=== PATIENT | female | born 1990 | race Caucasian/White ===

== ENCOUNTER 2016-12-03 12:47 | Emergency (ER) | payer BC ==
[2016-12-03] MEDS ORDERED: SODIUM CHLORIDE 0.9% 1,000 ML IV STA (13:23)
[2016-12-03] MEDS ORDERED: diphenhydrAMINE 50 MG/ML 1 ML VIAL IVP STA (13:23)
[2016-12-03] MEDS ORDERED: METOCLOPRAMIDE 5 MG/ML 2 ML VIAL IVP STA (13:23)
--- NOTE | 2016-12-03 13:26 | ED ---
General Adult HPI - General Chief complaint: Dizziness Stated complaint: Dizzy Spells/Headache Time Seen by Provider: 12/03/16 13:08 Source: patient, RN notes reviewed Mode of arrival: ambulatory Limitations: no limitations - History of Present Illness Initial comments: Patient 26-year-old female who presents emergency room today with a chief complaint of headache over the last 3 days with feeling dizziness that started yesterday. States that when she tried to eat something yesterday she felt nauseous. Denies any vomiting. She is eating due to the nausea over the last 24 hours. States that she went to urgent care was advised complete emergency room for further evaluation. She states headache feels like a migraine. She doesn't sensitivity to light. She states is located on the sides of her head. States still feels a little lightheaded and unsteady on her feet at times. States nauseous at times today. Denies any other complaints or symptoms currently. Patient denies any recent fever, chills, shortness of breath, chest pain, back pain, abdominal pain, nausea or vomiting, numbness or tingling, dysuria or hematuria, constipation or diarrhea, headaches or visual changes, or any other complaints. - Related Data Home Medications Medication Instructions Recorded Confirmed Multivitamins, Thera [Multivitamin 1 tab PO DAILY 12/03/16 12/03/16 (formulary)] Previous Rx's Medication Instructions Recorded Ibuprofen [Motrin] 600 mg PO Q6HR PRN #20 day 12/03/16 Metoclopramide HCl [Reglan] 10 mg PO Q6HR PRN #5 day 12/03/16 Allergies Allergy/AdvReac Type Severity Reaction Status Date / Time doxycycline Allergy Chest Pain Verified 12/03/16 14:02 Review of Systems ROS Statement: Those systems with pertinent positive or pertinent negative responses have been documented in the HPI. ROS Other: All systems not noted in ROS Statement are negative. Past Medical History Past Medical History: No Reported History History of Any Multi-Drug Resistant Organisms: None Reported Additional Past Surgical History / Comment(s): abdominal surgery (tumor removed) Past Psychological History: No Psychological Hx Reported Smoking Status: Never smoker Past Alcohol Use History: Occasional Past Drug Use History: None Reported General Exam - General Exam Comments Initial Comments: General: The patient is awake and alert, in no distress, and does not appear acutely ill. Eye: Pupils are equal, round and reactive to light, extra-ocular movements are intact. No nystagmus. There is normal conjunctiva bilaterally. No signs of icterus. Ears, nose, mouth and throat: There are moist mucous membranes and no oral lesions. Neck: The neck is supple, there is no tenderness or JVD. No meningismal signs. Cardiovascular: There is a regular rate and rhythm. No murmur, rub or gallop is appreciated. Respiratory: Lungs are clear to auscultation, respirations are non-labored, breath sounds are equal. No wheezes, stridor, rales, or rhonchi. Gastrointestinal: Soft, non-distended, non-tender abdomen without masses or organomegaly noted. There is no rebound or guarding present. No CVA tenderness. Bowel sounds are unremarkable. Normal finger nose testing. Normal rapid alternating movements. Strength 5/5 bilaterally both upper and lower extremity's. Musculoskeletal: Normal ROM, no tenderness. Strength 5/5. Sensation intact. Pulses equal bilaterally 2+. Neurological: A&O x 3. CN II-XII intact, There are no obvious motor or sensory deficits. Coordination appears grossly intact. Speech is normal. Skin: Skin is warm and dry and no rashes or lesions are noted. Psychiatric: Cooperative, appropriate mood & affect, normal judgment. Limitations: no limitations Course Vital Signs 12/03/16 12/03/16 12:53 14:27 Temperature 97.8 F 98.7 F Pulse Rate 80 65 Respiratory 17 18 Rate Blood Pressure 103/64 122/69 O2 Sat by Pulse 99 99 Oximetry EKG Findings - EKG Comments: EKG Findings:: EKG performed at 1408: A 12-lead EKG was performed and interpreted by me as showing the following: Rate is 62, and rhythm is normal sinus. There are normal QRS complexes and normal R-wave progression. ST segments have no elevation or depression, and VA segments appear normal. Medical Decision Making - Medical Decision Making Reexamined at this time shows no signs of distress. She does admit that her headache is improved here the emergency room after medications given. Patient will be discharged with Reglan and ibuprofen continue her symptoms. Advised to return to emergency room if any symptoms increase or worsen or fail concerns. - Lab Data Result diagrams: 12/03/16 14:03 12/03/16 14:03 Lab Results 12/03/16 12/03/16 12/03/16 Range/Units 14:03 14:03 14:14 WBC 6.0 (3.8-10.6) k/uL RBC 4.22 (3.80-5.40) m/uL Hgb 13.6 (11.4-16.0) gm/dL Hct 41.7 (34.0-46.0) % MCV 98.7 (80.0-100.0) fL MCH 32.1 (25.0-35.0) pg MCHC 32.5 (31.0-37.0) g/dL RDW 12.8 (11.5-15.5) % Plt Count 269 (150-450) k/uL Neutrophils % 69 % Lymphocytes % 23 % Monocytes % 6 % Eosinophils % 1 % Basophils % 0 % Neutrophils # 4.1 (1.3-7.7) k/uL Lymphocytes # 1.4 (1.0-4.8) k/uL Monocytes # 0.3 (0-1.0) k/uL Eosinophils # 0.1 (0-0.7) k/uL Basophils # 0.0 (0-0.2) k/uL Sodium 139 (137-145) mmol/L Potassium 4.0 (3.5-5.1) mmol/L Chloride 105 (98-107) mmol/L Carbon Dioxide 22 (22-30) mmol/L Anion Gap 12 mmol/L BUN 13 (7-17) mg/dL Creatinine 0.63 (0.52-1.04) mg/dL Est GFR (MDRD) Af Amer >60 (>60 ml/min/1.73 sqM) Est GFR (MDRD) Non-Af >60 (>60 ml/min/1.73 sqM) Glucose 78 (74-99) mg/dL Calcium 9.2 (8.4-10.2) mg/dL Total Bilirubin 0.6 (0.2-1.3) mg/dL AST 28 (14-36) U/L ALT 36 (9-52) U/L Alkaline Phosphatase 61 (38-126) U/L Total Protein 7.7 (6.3-8.2) g/dL Albumin 4.6 (3.5-5.0) g/dL Urine Color Urine Appearance (Clear) Urine pH (5.0-8.0) Ur Specific [place] (1.001-1.035) Urine Protein (Negative) Urine Glucose (UA) (Negative) Urine Ketones (Negative) Urine Blood (Negative) Urine Nitrite (Negative) Urine Bilirubin (Negative) Urine Urobilinogen (<2.0) mg/dL Ur Leukocyte Esterase (Negative) Urine WBC (0-5) /hpf Ur Squamous Epith Cells (0-4) /hpf Urine Bacteria (None) /hpf Urine Mucus (None) /hpf Urine HCG, Qual Not Detected (Not Detectd) 12/03/16 Range/Units 14:14 WBC (3.8-10.6) k/uL RBC (3.80-5.40) m/uL Hgb (11.4-16.0) gm/dL Hct (34.0-46.0) % MCV (80.0-100.0) fL MCH (25.0-35.0) pg MCHC (31.0-37.0) g/dL RDW (11.5-15.5) % Plt Count (150-450) k/uL Neutrophils % % Lymphocytes % % Monocytes % % Eosinophils % % Basophils % % Neutrophils # (1.3-7.7) k/uL Lymphocytes # (1.0-4.8) k/uL Monocytes # (0-1.0) k/uL Eosinophils # (0-0.7) k/uL Basophils # (0-0.2) k/uL Sodium (137-145) mmol/L Potassium (3.5-5.1) mmol/L Chloride (98-107) mmol/L Carbon Dioxide (22-30) mmol/L Anion Gap mmol/L BUN (7-17) mg/dL Creatinine (0.52-1.04) mg/dL Est GFR (MDRD) Af Amer (>60 ml/min/1.73 sqM) Est GFR (MDRD) Non-Af (>60 ml/min/1.73 sqM) Glucose (74-99) mg/dL Calcium (8.4-10.2) mg/dL Total Bilirubin (0.2-1.3) mg/dL AST (14-36) U/L ALT (9-52) U/L Alkaline Phosphatase (38-126) U/L Total Protein (6.3-8.2) g/dL Albumin (3.5-5.0) g/dL Urine Color Yellow Urine Appearance Clear (Clear) Urine pH 5.0 (5.0-8.0) Ur Specific [place] 1.012 (1.001-1.035) Urine Protein Negative (Negative) Urine Glucose (UA) Negative (Negative) Urine Ketones 1+ H (Negative) Urine Blood Negative (Negative) Urine Nitrite Negative (Negative) Urine Bilirubin Negative (Negative) Urine Urobilinogen <2.0 (<2.0) mg/dL Ur Leukocyte Esterase Small H (Negative) Urine WBC 3 (0-5) /hpf Ur Squamous Epith Cells 2 (0-4) /hpf Urine Bacteria Rare H (None) /hpf Urine Mucus Rare H (None) /hpf Urine HCG, Qual (Not Detectd) Disposition Clinical Impression: Nausea & vomiting, Headache Disposition: HOME SELF-CARE Condition: Good Instructions: Acute Nausea and Vomiting (ED) Additional Instructions: Please use medication as discussed. Please follow-up with family doctor in the next 2 days. Please return to emergency room if the symptoms increase or worsen or for any other concerns. Prescriptions: Ibuprofen [Motrin] 600 mg PO Q6HR PRN #20 day PRN Reason: Pain Metoclopramide HCl [Reglan] 10 mg PO Q6HR PRN #5 day PRN Reason: Nausea Referrals: Roderick Jain DO [Primary Care Provider] - 1-2 days Time of Disposition: 15:14
[2016-12-03 14:17] LABS: Basophils % (A) 0 %; CH 32.4; Eosinophils # (A) 0.1 k/uL (0-0.7); Eosinophils % (A) 1 %; HCT 41.7 % (34.0-46.0); HDW 2.01; HGB 13.6 gm/dL (11.4-16.0); Luc # (Auto) 0.08; Luc % (Auto) 1; Lymphocytes # (A) 1.4 k/uL (1.0-4.8); Lymphocytes % (A) 23 %; MCH 32.1 pg (25.0-35.0); MCHC 32.5 g/dL (31.0-37.0); MCV 98.7 fL (80.0-100.0); Mean Platelet Volume 8.6; Monocytes # (A) 0.3 k/uL (0-1.0); Monocytes % (A) 6 %; Neutrophils # (A) 4.1 k/uL (1.3-7.7); Neutrophils % (A) 69 %; RBC 4.22 m/uL (3.80-5.40); RDW 12.8 % (11.5-15.5); WBC (Perox) 5.96
[2016-12-03 14:28] VITALS: TEMP 98.7
[2016-12-03 14:28] LABS: ALT 36 U/L (9-52); AST 28 U/L (14-36); Alkaline Phosphatase 61 U/L (38-126); Anion Gap 12 mmol/L; Blood Urea Nitrogen 13 mg/dL (7-17); Calcium 9.2 mg/dL (8.4-10.2); Carbon Dioxide 22 mmol/L (22-30); Chloride 105 mmol/L (98-107); Glucose 78 mg/dL (74-99); Non-African American GFR(MDRD) >60 (>60 ml/min/1.73 sqM); Sodium 139 mmol/L (137-145); Total Bilirubin 0.6 mg/dL (0.2-1.3); Total Protein 7.7 g/dL (6.3-8.2)
[2016-12-03 14:33] LABS: Appearance,Urine Clear (Clear); Bacteria,Urine Rare /hpf; Bilirubin,Urine Negative (Negative); Glucose,Urine (UA) Negative (Negative); Ketones,Urine 1+ (Negative); Leukocyte Esterase,Urine Small (Negative); Mucus,Urine Rare /hpf; Nitrite,Urine Negative (Negative); Particle Count 2915; Protein,Urine Negative (Negative); Specific Gravity,Urine 1.012 (1.001-1.035); Squamous Epithelial Cell,Urine 2 /hpf (0-4); UA Billing (MACRO vs. MICRO) MICRO; Urobilinogen,Urine <2.0 mg/dL (<2.0); WBC,Urine 3 /hpf (0-5)
[2016-12-03] MEDS ORDERED: KETOROLAC 30 MG/ML 1 ML VIAL IVP STA (15:13)
[2016-12-03 15:26] VITALS: BP 93/55; PULSE 80; RESP 16
== END 2016-12-03 15:26 | disposition home or self-care (01) ==
LOC: EC 12:47
DX: R11.2 Nausea with vomiting, unspecified (principal); R51 Headache; R42 Dizziness and giddiness; Z79.899 Other long term (current) drug therapy; Z88.1 Allergy status to other antibiotic agents
CPT/HCPCS: 36415; 93005; 80053; 85025; 81001; 81025; 99284; 96374; 96375 ×2; 96361; J1200; J2765; J1885